=== PATIENT | male | born 1995 | race Caucasian/White ===

== ENCOUNTER → 2016-12-21 | Outpatient (REF) | LOC: EDBD 10:53 → WSOH 10:53 | DX: Z02.89 Encounter for other administrative examinations (principal) ==

== ENCOUNTER → 2016-12-28 | Outpatient (REF) | LOC: WSOH 09:39 → EDBD 09:39 | DX: Z00.00 Encounter for general adult medical examination without abnormal findings (principal) ==

== ENCOUNTER → 2016-12-31 | Outpatient (REF) | LOC: WSOH 10:15 | DX: Z23 Encounter for immunization (principal) ==

== ENCOUNTER → 2017-01-08 | Outpatient (REF) | LOC: WSOH 13:37 | DX: Z11.1 Encounter for screening for respiratory tuberculosis (principal) ==

== ENCOUNTER → 2017-01-11 | Outpatient (REF) | LOC: WSOH 15:15 | DX: Z23 Encounter for immunization (principal) ==

== ENCOUNTER → 2017-02-01 | Outpatient (REF) | LOC: WSOH 15:19 | DX: Z23 Encounter for immunization (principal) ==

== ENCOUNTER → 2017-02-08 | Outpatient (REF) | LOC: WSOH 13:10 | DX: Z23 Encounter for immunization (principal) ==

== ENCOUNTER 2020-09-15 08:39 | Outpatient (RCR) | payer OTHER | END 2020-12-14 | disposition home or self-care (01) | LOC: WSOH | DX: Z77.21 Contact with and (suspected) exposure to potentially hazardous body fluids (principal); Y99.0 Civilian activity done for income or pay ==